=== PATIENT | male | born 1995 | race Caucasian/White ===

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

== ENCOUNTER → 2018-11-03 | Outpatient (REF) | END | disposition home or self-care (01) | DRG 951 | LOC: PAGE 10:00 | PROVIDERS: ATTEND Nurse Practitioner Family | DX: Z02.1 Encounter for pre-employment examination (principal); Z23 Encounter for immunization ==

== ENCOUNTER 2022-10-03 02:52 | Emergency (ER) | payer OTHER ==
[~2022-10-03] VITALS: Ht 180.3 cm; Wt 109.9 kg
[2022-10-03 03:20] LABS: BASO% 0.3 % (0-3); EOS% 0.4 % (0-8); HEMATOCRIT 49.7 % (39.0-50.0); HEMOGLOBIN 16.8 g/dl (14.0-18.0); IMMATURE GRANULOCYTES 0.3 % (0.0-5.0); LYMPH% 11.4 % (15-41); MEAN CELL VOLUME 86.6 fL CALC (80.0-100.0); MEAN CORPUSCULAR HGB 29.3 pG CALC (26.0-32.0); MEAN CORPUSCULAR HGB CONC 33.8 g/dL CAL (32.0-36.0); MONO% 5.6 % (2-13); NEUT# 5.82 thou/uL (1.82-7.42); RED BLOOD COUNT 5.74 mill/uL (4.70-6.10); RED CELL DISTRI WIDTH 11.7 % (11.5-15.5)
[2022-10-03 03:56] LABS: ALBUMIN 5.5 g/dL (3.2-5.0); ALKALINE PHOSPHATASE 64 u/l (38-126); AMYLASE 80 u/l (30-110); ANION GAP 18 (6-22 (CALC)); BILIRUBIN, TOTAL 1.2 mg/dL (0.2-1.3); BUN 17 mg/dL (9-20); BUN/CREATININE RATIO 17 (12-20 (CALC)); CARBON DIOXIDE 21 mmol/l (22-30); CHLORIDE 105 mmol/l (95-108); GFR FOR AFR.AMER. > 60 ML/MIN (>=60 (CALC)); GFR OTHER RACES > 60 ML/MIN (>=60 (CALC)); LIPASE 101 u/l (23-300); POTASSIUM 4.1 mmol/l (3.5-5.1); SODIUM 140 mmol/l (137-146)
[2022-10-03 03:59] LABS: SGOT/AST 44 u/l (17-59); TOTAL PROTEIN 9.9 g/dL (6.3-8.2)
[2022-10-03 04:00] LABS: URINE BLOOD DIPSTICK NEGATIVE (NEGATIVE); URINE COLOR YELLOW; URINE GLUCOSE - DIPSTICK NEGATIVE (NEGATIVE); URINE KETONE TRACE mg/dL (NEGATIVE); URINE LEUK ESTERASE NEGATIVE (NEGATIVE); URINE PH 5.5 (4.5-8.0); URINE PROTEIN - DIPSTICK 30 mg/dL (NEG-TRACE); URINE SPECIFIC GRAVITY >=1.030; URINE UROBILINOGEN - DIPSTICK 0.2 E.U./dL (0.2)
[2022-10-03 04:01] LABS: URINE BILIRUBIN - DIPSTICK SMALL (NEGATIVE); URINE NITRITE - DIPSTICK NEGATIVE (Negative)
[2022-10-03 04:08] LABS: URINE BACTERIA MODERATE hpf; URINE EPITHELIAL CELLS FEW EPI/hpf (0-FEW); URINE RBC 0-2 RBC/hpf (0-5); URINE YEAST MANY hpf
[2022-10-03] MEDS ORDERED: ONDANSETRON4 MG PO (05:24)
[2022-10-03 05:25] VITALS: BP 117/59
[2022-10-03] MEDS ORDERED: CIPROFLOXACN500 MG PO (05:28)
[2022-10-04] MEDS ORDERED: LOMOTIL2.5 MG PO (14:07)
[2022-10-05] MEDS ORDERED: REGLAN10 MG PO (01:31)
== END 2022-10-03 05:34 | disposition home or self-care (01) | DRG 641 ==
LOC: ED 02:52
PROVIDERS: Emergency Medicine
DX: E86.0 Dehydration (principal); A08.0 Rotaviral enteritis; R19.7 Diarrhea, unspecified
CPT/HCPCS: Q9967; S0164

== ENCOUNTER 2022-10-04 11:01 | Emergency (ER) | payer OTHER ==
[~2022-10-04] VITALS: Ht 180.3 cm; Wt 108.9 kg
[~2022-10-04 11:01] MED LIST changes: +CIPROFLOXACN500 MG PO; +ONDANSETRON4 MG PO
[2022-10-04 11:20] VITALS: BP 121/81
[2022-10-04 11:36] LABS: BASO% 0.5 % (0-3); EOS% 0.7 % (0-8); HEMATOCRIT 49.7 % (39.0-50.0); HEMOGLOBIN 16.8 g/dl (14.0-18.0); IMMATURE GRANULOCYTES 0.2 % (0.0-5.0); LYMPH% 20.1 % (15-41); MEAN CORPUSCULAR HGB 29.4 pG CALC (26.0-32.0); MEAN CORPUSCULAR HGB CONC 33.8 g/dL CAL (32.0-36.0); NEUT# 2.75 thou/uL (1.82-7.42); NEUT% 67.5 % (42-76); RED BLOOD COUNT 5.71 mill/uL (4.70-6.10); RED CELL DISTRI WIDTH 11.8 % (11.5-15.5)
[2022-10-04 11:51] VITALS: BP 124/74
[2022-10-04 11:53] LABS: ALBUMIN 5.6 g/dL (3.2-5.0); ALKALINE PHOSPHATASE 79 u/l (38-126); ANION GAP 19 (6-22 (CALC)); BILIRUBIN, TOTAL 0.9 mg/dL (0.2-1.3); BUN 17 mg/dL (9-20); BUN/CREATININE RATIO 12 (12-20 (CALC)); CARBON DIOXIDE 18 mmol/l (22-30); CHLORIDE 104 mmol/l (95-108); CREATININE 1.5 mg/dL (0.7-1.3); GFR FOR AFR.AMER. > 60 ML/MIN (>=60 (CALC)); GFR OTHER RACES 57 ML/MIN (>=60 (CALC)); POTASSIUM 3.9 mmol/l (3.5-5.1); SGOT/AST 52 u/l (17-59); SODIUM 137 mmol/l (137-146); TOTAL PROTEIN 9.7 g/dL (6.3-8.2)
[2022-10-04] MEDS ORDERED: LOMOTIL2.5 MG PO (14:07)
[2022-10-04 15:25] VITALS: BP 119/67
[2022-10-05] MEDS ORDERED: REGLAN10 MG PO (01:31)
== END 2022-10-04 15:35 | disposition home or self-care (01) | DRG 392 ==
LOC: ED 11:01
PROVIDERS: Family Medicine
DX: R19.7 Diarrhea, unspecified (principal); A08.0 Rotaviral enteritis; E86.0 Dehydration